=== PATIENT | female | born 1965 | race Caucasian/White ===

== ENCOUNTER 2023-06-23 03:47 | Emergency (ER) | payer MEDICAID ==
[~2023-06-23] VITALS: Ht 149.9 cm; Wt 44.5 kg
[2023-06-23 04:09] VITALS: BP_SYST 115; PULSE 104; RESP 20; TEMP 98; O2SAT 98
[2023-06-23] MEDS ORDERED: ACETAMINOPHEN 500 MG TABLET PO ONE (05:45)
[2023-06-23] MEDS ORDERED: IBUP-1969 PO (07:05)
[2023-06-23 08:45] VITALS: BP_SYST 138; PULSE 86; RESP 19; TEMP 96.8; O2SAT 99
== END 2023-06-23 08:45 | disposition home or self-care (01) ==
LOC: SED 03:47
DX: S09.90XA Unspecified injury of head, initial encounter (principal); R04.0 Epistaxis; Z88.0 Allergy status to penicillin; Z79.899 Other long term (current) drug therapy; Y04.0XXA Assault by unarmed brawl or fight, initial encounter; Y93.89 Activity, other specified; Y92.89 Other specified places as the place of occurrence of the external cause; Y99.8 Other external cause status
CPT/HCPCS: 70450-TC; 70486-TC; 72125-TC; 76376; 99284